=== PATIENT | male | born 1950 | race Caucasian/White ===

== ENCOUNTER → 2017-09-21 | Outpatient (CLI) | payer MEDICARE, MEDICAID ==
[~2017-09-21] MED LIST: ALBUAER3 INH; AMIO0.1T PO; AMIO5TAB; ANDR1GEL2 TOPICAL; ASCO100029 PO; BILB40CA2 PO; BOSW5TAB PO; CALC1TAB87 PO; CIAL5TAB PO; COUM7.5T PO; ENBR50IN4 SQ; FAMC250T PO; FOLI1TAB6 PO; GABA300C5 PO; HYDR-3583 PO; HYDR0.05 TOPICAL; IPRA0.06; KETO2CRE TOPICAL; LEVA500T33 PO; LISI-593 PO; LISI40TA; MAXA10TA2 PO; METH2.5T PO; OMEG100046 PO; OXYC-395 PO; OXYC40TA20 PO; OXYC60TA8 PO; PRED2.5T PO; ROSU20 PO; SILV1CRE20 TOPICAL; SPIR25TA PO; SYMB160A INH; ZAFI1TAB4; ZANT150T2 PO; [UNRECOGNIZED DRUG - CODE]
[2017-09-21 09:19] LABS: AUTOMATED NEUTROPHIL # 4.1 TH/MM3 (1.8-7.7); BASOPHIL # 0.1 TH/MM3 (0-0.2); BASOPHIL % 0.8 % (0.0-2.0); EOSINOPHIL # 0.3 TH/MM3 (0-0.4); EOSINOPHIL % 5.2 % (0.0-4.0); HEMATOCRIT 30.6 % (39.0-51.0); HEMOGLOBIN 10.4 GM/DL (13.0-17.0); LYMPH % 20.9 % (9.0-44.0); LYMPHOCYTE # 1.4 TH/MM3 (1.0-4.8); MEAN CELL VOLUME 101.7 FL (80.0-100.0); MEAN CORPUSCULAR HEMOGLOBIN 34.7 PG (27.0-34.0); MEAN CORPUSCULAR HGB CONC 34.1 % (32.0-36.0); MEAN PLATELET VOLUME 7.4 FL (7.0-11.0); MONO % 10.9 % (0.0-8.0); MONOCYTE # 0.7 TH/MM3 (0-0.9); NEUT % 62.2 % (16.0-70.0); PLATELET COUNT 199 TH/MM3 (150-450); RED BLOOD COUNT 3.01 MIL/MM3 (4.50-5.90); RED CELL DISTRIBUTION WIDTH 14.6 % (11.6-17.2); WHITE BLOOD COUNT 6.6 TH/MM3 (4.0-11.0)
[2017-09-21 09:22] LABS: BILIRUBIN, URINE NEG (NEG); BLOOD, URINE NEG (NEG); GLUCOSE,URINE NEG (NEG); KETONE, URINE NEG (NEG); MUCUS URINE FEW /lpf (OCC); NITRITE,URINE NEG (NEG); URINE COLOR YELLOW (YELLW/STRAW); URINE LEUKOCYTE ESTERASE NEG (NEG)
[2017-09-21 09:30] LABS: INTERNATIONAL NORMALIZED RATIO 1.6 RATIO
[2017-09-21 09:36] LABS: ALBUMIN 3.6 GM/DL (3.4-5.0); AST (GOT) 36 U/L (15-37); BICARBONATE 25.5 MEQ/L (21.0-32.0); BLOOD UREA NITROGEN 29 MG/DL (7-18); CALCIUM 8.5 MG/DL (8.5-10.1); CHLORIDE 107 MEQ/L (98-107); CREATININE 1.48 MG/DL (0.60-1.30); GLOMERULAR FILTRATION RATE 48 ML/MIN (>89); GLUCOSE,FASTING 86 MG/DL (74-99); SODIUM (NA) 138 MEQ/L (136-145)
[2017-09-21 09:37] LABS: ALT (GPT) 43 U/L (12-78)
[2017-09-21 09:40] LABS: ALKALINE PHOSPHATASE 67 U/L (45-117); TOTAL BILIRUBIN ADULT 0.4 MG/DL (0.2-1.0)
--- NOTE | 2017-09-21 10:12 | RADRPT ---
EXAM DATE/TIME: 09/21/2017 09:48 [facility] COMPARISON: No previous studies available for comparison. INDICATIONS : Pre op. Evaluate for pneumothorax, pneumonia, or communicable diseases. MEDICAL HISTORY : None. SURGICAL HISTORY : Fusion, Lumbar. ENCOUNTER: Initial ACUITY: 1 day PAIN SCORE: 0/10 LOCATION: Bilateral chest FINDINGS: The cardiac silhouette is normal in transverse diameter. The lungs are free of acute parenchymal opac ity. No effusions are identified. There is blunting of the costophrenic angle on the left consistent with dural thickening. CONCLUSION: 1. No acute cardiopulmonary disease. Quentin Smiley MD on September 21, 2017 at 10:09 Board Certified Radiologist. This report was verified electronically.
--- NOTE | 2017-09-21 12:20 | EKG ---
Date Performed: 09/21/2017 Time Performed: 09:31:34 PTAGE: 67 years EKG: Sinus rhythm Normal ECG NO PREVIOUS TRACING DOCTOR: Federico Harrington Interpretating Date/Time 09/21/2017 12:18:40
== END ==
LOC: CPRE 08:10
PROVIDERS: ATTEND Neurological Surgery
DX: Z01.812 Encounter for preprocedural laboratory examination (principal); Z01.811 Encounter for preprocedural respiratory examination; Z01.810 Encounter for preprocedural cardiovascular examination; Z01.818 Encounter for other preprocedural examination; M50.20 Other cervical disc displacement, unspecified cervical region; Z79.01 Long term (current) use of anticoagulants
CPT/HCPCS: 36415; 71046; 80053; 81001; 85025; 85610; 85730; 87640; 87641; 93005

== ENCOUNTER 2017-09-27 06:28 | Observation (INO) | payer MEDICARE, OTHER ==
[~2017-09-27] VITALS: Ht 182.9 cm; Wt 84.8 kg
[~2017-09-27 06:28] MED LIST changes: -AMIO5TAB; -HYDR-3583 PO; -LEVA500T33 PO; -LISI40TA; -ZAFI1TAB4; -[UNRECOGNIZED DRUG - CODE]
[2017-09-27] MEDS ORDERED: METOPROLOL TARTRATE 25 MG TAB PO PRN (07:00)
[2017-09-27] MEDS ORDERED: LACTATED RINGER'S 1000 ML IV PRN (07:00)
[2017-09-27] MEDS ORDERED: SODIUM CHLORID 0.9% 500 ML IV PRN (07:00)
[2017-09-27] MEDS ORDERED: SODIUM CHLOR 0.9% 1000 ML INJ 1,000 ML IV SCH (07:00)
[2017-09-27] MEDS ORDERED: VANCOMYCIN HCL 1000 MG ON-CALL/NS 250 ML IV SCH ×2 (07:00)
[2017-09-27] MEDS ORDERED: ceFAZolin 2 GM PREMIX 50 ML ONE (07:45)
[2017-09-27] MEDS ORDERED: THROMBIN (TOPICAL) 5,000 UNIT VIAL ONE (07:45)
[2017-09-27] MEDS ORDERED: MICROFIBRILLAR COLLAGEN HEMOSTAT 70 X 35 MM BANDAGE ONE (07:45)
[2017-09-27] MEDS ORDERED: GELFOAM SIZE 100 ONE (07:45)
[2017-09-27] MEDS ORDERED: GENTAMICIN SULFATE 80 MG/2 ML VIAL ONE (07:46)
[2017-09-27 07:50] LABS: PROTHROMBIN TIME - PATIENT 10.5 SEC (9.8-11.6)
[2017-09-27] MEDS ORDERED: LEVA500T33 PO (07:54)
[2017-09-27] MEDS ORDERED: ACETAMINOPHEN 1000 MG/100 ML 100 ML IV ONE (08:09)
[2017-09-27] MEDS ORDERED: ARTIFICIAL TEARS OPTH OINT 3.5 APPLIC/3.5 GM TUBO ONE (08:10)
[2017-09-27] MEDS ORDERED: PROPOFOL 500 MG/50 ML INJ 150 ML ONE (08:12)
[2017-09-27] MEDS ORDERED: LACTATED RINGER'S 1000 ML INJ 2,000 ML IV ONE (12:00)
[2017-09-27] MEDS ORDERED: ROCURONIUM INJ 50 MG/5 ML SYRINGE IV PUSH ONE (12:00)
[2017-09-27] MEDS ORDERED: PROPOFOL 200 MG/20 ML AMP IV ONE (12:00)
[2017-09-27] MEDS ORDERED: LIDOCAINE HCL 1% PF 5 ML SYRINGE OTHER ONE (12:00)
[2017-09-27] MEDS ORDERED: DEXAMETHASONE SOD PHOS 4 MG/ML VIAL IV ONE (12:00)
[2017-09-27] MEDS ORDERED: ONDANSETRON HCL 4 MG/2 ML VIAL IV ONE (12:00)
[2017-09-27] MEDS ORDERED: ePHEDrine/NS 25 MG/5 ML SYRINGE IV ONE (12:00)
--- NOTE | 2017-09-27 12:19 | RADRPT ---
EXAM DATE/TIME: 09/27/2017 09:56 [facility] COMPARISON: No previous studies available for comparison. INDICATIONS : Post-op C4-C5 and C5-C6 anterior cervical fusion. MEDICAL HISTORY : None. SURGICAL HISTORY : None. ENCOUNTER: Initial ACUITY: 1 day PAIN SCORE: Non-responsive. LOCATION: neck FINDINGS: A single lateral view of the cervical spine was performed. The vertebral bodies are in normal alignm ent with postoperative plate and screw fixation across C4-5-6. CONCLUSION: 1. Anterior fusion across C4-5-6. Normal alignment. Drain present. Jose Paulino MD on September 27, 2017 at 12:16 Board Certified Radiologist. This report was verified electronically.
[2017-09-27] MEDS ORDERED: diphenhydrAMINE HCL 50 MG/ML VIAL ONE (12:22)
[2017-09-27] MEDS ORDERED: DO NOT ADM ANY ANTICOAGULANT DRUGS PRN (12:30)
[2017-09-27] MEDS ORDERED: MORPHINE SULFATE 4 MG/ML INJ ONE (13:01)
[2017-09-27] MEDS ORDERED: MIDAZOLAM HCL 2 MG/2 ML VIAL ONE (13:01)
--- NOTE | 2017-09-27 13:08 | PD.OP ---
Operative Report Date of Surgery: Sep 27, 2017 Preoperative Diagnosis: C4-5, C5-6 cervical spinal stenosis Postoperative Diagnosis: C4-5, C5-6 cervical spinal stenosis Procedure: C4-5, C5-6 anterior cervical discectomy, interbody arthodhesis using PEEK cage filled with autologous bone graft, Simplicity plate and screws. Anesthesia: General Surgeon: Shun Worrell Assistant Unit Forester(s): Guera Russell Operation and Findings: INDICATIONS FOR THE PROCEDURE Mr erickson is a 67 year-old male who presented with intractable neck pain and clinical evidence of upper extremity radiculopathy. He was found to have significant spndylosis with stenosis. He has failed maximum nonsurgical management including multiple modalities of conservative treatment. A surgical decompression and arthrodhesis were indicated. The qihk-yj-zehs details of the procedure, indications, alternatives, risks and potential complications were fully discussed with the patient. He fully understood. All The questions were answered. No guarantees were given. The patient voiced requesting the procedure and provided informed consents. The patient was offered the alternative of delaying the procedure and continuing with nonsurgical management. DETAILS OF THE SURGICAL PROCEDURE After the induction of general anesthesia, endotracheal intubation was performed. A Marmolejo catheter, bilateral FRANK hose, and sequential compression devices were placed and kept throughout the procedure. Placement of electrodes for neurophysiological monitoring of the somatosensorial evoked potentials. motor evoked potentials, and EMG as well as laryngeal nerve monitoring was achieved. The patient was positioned supine on a Delvin table with the head over a gel doughnut. All pressure points were carefully padded with eggcrate mattress. The eyes were tapped shut after ointment was applied by the anesthesiologist to prevent corneal abrasion. A Lolis hugger was placed over the exposed lower body to maintain control of the core body temperature. The electrophysiological team placed the needles and electrodes in their proper location and baseline SSEP's and motor evoked potentials were registered prior and after positioning and endotracheal intubation. The anterior cervical region was prepped and draped in the usual sterile fashion. A localizing x-ray was performed with a C-arm. The surgical procedure was performed in several steps as follow: SURGICAL APPROACH A skin incision was made along the medial cervical crease with a #10 blade. The dissection was carried out through the platysma exposing the sternocleidomastoid muscle. The cervical spine was approached following the fascial layers of the neck just medial to the anterior border of the sternocleidomastoid and carotid sheath by a combination of sharp and dull dissection. The omohyoid muscle was identified and carefully dissected laterally and the deep cervical fascia was carefully opened. The longus colli muscles were retracted to each side of the midline. A marker was placed at the disc space C5-6 and a cross-table lateral x-ray performed with a C-arm. SURGICAL DECOMPRESSION In order to decompress the anterior surface of the spinal cord it was necessary to preform a microsurgical resection of the disk at C4-5 and C5-6. At this point in the procedure the operating microscope was draped in the usual sterile fashion and brought to the field. The rest of the surgical procedure was performed using microdissection technique with the exception of the closure. Under the operative microscopic, a self-retaining retractor was placed underneath the longus colli muscle. Anterior osteophite spurs werte carefully removed with the [place]. The annulus at C4-5 and C5-6 were incised with a #15 blade and microdiscectomy was then carefully carried out using angled curets and pituitary forceps. There were osteophitic/disk complexes mass effect and compression of the dural sac and nerve roots. The posterior longitudinal ligament was then elevated with an angled curet and incised with a 15 bladed knife. A careful resection of the posterior longitudinal ligament was carried out using a thin footplate 2 mm Kerrison. A nerve hook was used to assess the epidural space behing the vertebral bodies C5 and C6 in search for residual disk fragments. The margins of the posterior endplates at C4-5 and C5-6 were carefully drilled and undercut with a TPS drill under high magnification. The decompression was then carried out laterally, and a bilateral foraminotomy was performed with a 2mm thin foot Kerrison. Then the vertebral bodies above and below the disk space were undercut using a 2 mm thin foot Kerrison. The epidural space was the systematically assessed with a nerve hook in search for disk fragments or scar tissue. An excellent decompression was achieved in both , the dural sac and bilateral exiting nerve roots. The incision was then irrigated with a large amount of antibiotic solution INTERBODY ARTHRODHESIS In order to avoid collapse of the disk space which would result in bilateral foraminal stenosis, and to increase the chances of a successful fusion, it was necessary to place an interbody cage filled with autologous bone. At this point of the procedure, the superior and inferior endplates were then evenly decorticated with a TPS drill. The use of a drill in combination with a curette allowed me to systematically remove the cartilaginous endplates, exposing healthy bone for the interbody arthrodesis. Fourteen millimeters distraction pins were then placed at the vertebral bodies adjacent to the disk space, and gentle distraction was applied. The size of the interbody cage was then assessed using different size spacers, and a rasp was used to ensure no residual cartilage. A PEEK cage of the appropriate size was selected, and the interbody arthrodesis was then preformed by carefully impacting a PEEK cage filled with autologous bone graft to the disc spaces C4-5 and C5-6. An excellent position of the cage was achieved. This was was confirmed anatomically by feeling the space posterior to the implant and distance to the anterior surface of the dural sac. Radiological confirmation of the position was performed with a cross lateral xray performed with the C-arm. INTERNAL INSTRUMENTAL FIXATION Once that the interbody device was in an appropriate position, it was necessary to stabilize the spine with anterior instrumentation. Anterior instrumentation has demonstrated to increase the rate of fusion, acelerate the patient's recovery, and decrease the rate of failed interbody grafts. At this point of the procedure, the distance between the vertebral bodies was carefully measures, and a Simplicity plate was brought to the field and presented in front of the vertebral bodies C4 C5 and C6. Assembler Installer Structures holes were then drilled using the TPS drill, and the plate was then secured to the spine using self-drilling, self-tapping screws. Initially, the inferior right screw was inserted, followed by placement of the contralateral upper screw. The remanding screws were sequentially placed in a contra-lateral fashion. A proper purchase was achieved with all screws and the position of the cage, plate and screws, and alignment of the spine was assessed anatomically by direct visualization, and radiologically by performing a cross lateral xray of the cervical spine with the C-arm. CLOSURE The incision was irrigated with several liters of antibiotic solution. Hemostasis was achieved with a bipolar. The screws were locked to prevent backing out. A 7 mm Delvin-De Oliveira drain was left in the prevertebral space and externalized through a separate stab incision. The incision was then closed in layers. 3-0 Vicryl with interrupted sutures was used to close the platysma and subcutaneous tissue. The skin was closed with 4-0 running subcuticular Vicryl and glue was applied to the skin. The drain was secured with a 3-0 nylon. At the end of the procedure the sponge, needle and instrument counts were all correct. The estimated blood loss was less than 60 cc. No blood transfusion was given. No intraoperative complications occurred. The patient received prophylactic antibiotics. The patient was then extubated and transferred to the recovery room in stable condition. Shun Worrell MD Sep 27, 2017 13:08
[2017-09-27] MEDS: SODIUM CHLOR 0.9% 1000 ML INJ 1,000 ML IV SCH ×2 (13:25→23:36)
[2017-09-27] MEDS ORDERED: *ENALAPRILAT 1.25 MG/ML VIAL PERIprocedural Use ONLY ONE (13:42)
[2017-09-27] MEDS ORDERED: MORPHINE SULFATE 2 MG/ML INJ IV PUSH PRN (14:00)
[2017-09-27] MEDS ORDERED: ACETAMINOPHEN/HYDROcodone 325 MG/10 MG TAB PO PRN ×2 (14:00)
[2017-09-27] MEDS ORDERED: CYCLOBENZAPRINE HCL 10 MG TAB PO PRN (14:00)
[2017-09-27] MEDS ORDERED: ACETAMINOPHEN 325 MG TAB PO PRN (14:00)
[2017-09-27] MEDS ORDERED: MAGNESIUM HYDROXIDE SUSP 30 ML CUP PO PRN (14:15)
[2017-09-27] MEDS ORDERED: cloNIDine HCL 0.1 MG TAB PO/NG PRN (14:15)
[2017-09-27] MEDS ORDERED: ONDANSETRON HCL 4 MG/2 ML VIAL IV PUSH PRN (14:15)
[2017-09-27] MEDS: DEXAMETHASONE SOD PHOS 4 MG/ML VIAL IV PUSH SCH ×2 (15:00→21:00)
[2017-09-27] MEDS ORDERED: MENTHOL LOZENGE BUCCAL PRN (15:00)
[2017-09-27] MEDS: ceFAZolin 2 GM PREMIX 50 ML IV SCH (17:00)
[2017-09-27] MEDS ORDERED: *morphine SULFATE 4 MG/ML PERIprocedure ONLY ONE (17:19)
[2017-09-27] MEDS ORDERED: CHLORHEXIDINE GLUCONATE 4% SOLN 120 ML BTL TOP SCH (21:00)
[2017-09-27] MEDS: DOCUSATE SODIUM 100 MG CAP PO SCH (22:02)
[2017-09-27 22:03] VITALS: BP 146/73; PULSE 68; RESP 16; TEMP 97.2; O2SAT 96
[2017-09-27] MEDS: MORPHINE SULFATE 2 MG/ML INJ IV PUSH PRN (22:11)
[2017-09-28] VITALS: BP 144/66; PULSE 73; RESP 15; TEMP 96.4; O2SAT 93
[2017-09-28] MEDS: RESP: ALBUTEROL 2.5 MG/3 ML NEB (PRN) INH ×2 (00:52→09:35)
[2017-09-28] MEDS: ceFAZolin 2 GM PREMIX 50 ML IV SCH ×2 (01:07→09:08)
[2017-09-28] MEDS: DEXAMETHASONE SOD PHOS 4 MG/ML VIAL IV PUSH SCH ×2 (03:29→09:08)
[2017-09-28] MEDS: MORPHINE SULFATE 2 MG/ML INJ IV PUSH PRN ×3 (03:36→10:08)
[2017-09-28 06:29] VITALS: BP 142/69; PULSE 62; RESP 18; TEMP 97.3; O2SAT 96
[2017-09-28 07:31] VITALS: BP 151/79; PULSE 59; RESP 18; TEMP 96.9; O2SAT 97
[2017-09-28] MEDS ORDERED: PANTOPRAZOLE SOD 40 MG DELAYED RELEASE TAB PO SCH (09:00)
[2017-09-28] MEDS: DOCUSATE SODIUM 100 MG CAP PO SCH (09:08)
[2017-09-28] MEDS ORDERED: HYDR-3583 PO (09:30)
[2017-09-28] MEDS ORDERED: OXYC-395 PO (09:35)
[2017-09-28] MEDS ORDERED: PHENOL 1.4% SOLN 180 ML BTL OROPHARYNG PRN (10:30)
[2017-09-28] MEDS ORDERED: BENZOCAINE 6 MG/MENTHOL 10 MG LOZENGE BUCCAL PRN (10:30)
[2017-09-28 11:50] VITALS: O2SAT 93; O2SAT 97
[2017-09-28 11:54] VITALS: BP 140/66; PULSE 70; RESP 18; TEMP 97.2; O2SAT 97
--- NOTE | 2017-09-28 12:44 | HHI.DS ---
Discharge Summary Admission Date Sep 27, 2017 at 12:51 Discharge Date: Sep 28, 2017 Admitting Diagnosis s/p ACDF (1) Status post cervical arthrodesis ICD Code: Z98.1 - Arthrodesis status Brief History Mr Camp is a 67 year-old male who presented with intractable neck pain and clinical evidence of upper extremity radiculopathy. He was found to have significant spndylosis with stenosis. He has failed maximum nonsurgical management including multiple modalities of conservative treatment. A surgical decompression and arthrodesis were indicated. Significant Findings Laboratory Tests Test 09/27/17 07:30 Imaging Last Impressions Cervical Spine X-Ray 09/27/17 0000 Signed Impressions: Service Date/Time: Wednesday, September 27, 2017 09:56 - CONCLUSION: 1. Anterior fusion across C4-5-6. Normal alignment. Drain present. Jose Paulino MD PE at Discharge Awake, alert. No acute distress. Speech is clear. Pupils equal. Facial motor symmetric. Motor: moves all four extremities Resp: clear, no wheezes Skin: wound with clean, dry dressing Neck: immobilized by [facility] Hospital Course Mr. Camp underwent a C4-5, C5-6 anterior cervical discectomy, interbody arthrodesis using PEEK cage filled with autologous bone graft, simplicity plate and screws on Sep 27, 2017 for cervical spinal stenosis. He was discharged home the following day in stable conditions. Wound care and activity restrictions discussed. Pt Condition on Discharge: Stable Discharge Disposition: Discharge Home Discharge Instructions DIET: Follow Instructions for: Heart Healthy Diet ADDITIONAL Diet Instructions: soft food and advance as tolerated ACTIVITIES You can perform: Weight Bearing As [place] ADDITIONAL Activity Instructio: Keep [place] collar on at all times, may remove with meals. Avoid strenuous activities, heavy lifting, or other activities that may place stress on the cervical spine. Follow up Referrals: Neurosurgery - 1 Week New Medications: Oxycodone (Oxycodone) 10 Mg Tab 10 MG PO Q8H PRN for PAIN, #62 TAB 0 Refills Hydrocodone/Acetaminophen (Hydrocodone-Acetamin 10-325 mg) 10 Mg-325 Mg Tablet 1 TAB PO Q4H PRN for PAIN SCALE 1 TO 5, #62 TAB-CAP 0 Refills Continued Medications: Albuterol 8.5 GM Inh (Proair Hfa 8.5 GM Inh) 90 Mcg/Act Aer 2 PUFF INH DAILY PRN for SHORTNESS OF BREATH Amiodarone (Amiodarone) 100 Mg Tab 100 MG PO DAILY@0600 for Regulate Heart Beat, #30 TAB 0 Refills Ascorbic Acid (Vitamin C) 1,000 Mg Tablet.er 1 TAB PO DAILY Eqescryv-Sbwebmzlnutng-Icwcsegdm-Rutin (Bilberry Complex) 40-25-10-10 Mg Cap 250 MG PO DAILY, CAP Juerxbetn-Xnxyivxpjqz-Ttcskun (Osteo Bi-Flex One A Day) 1 Tab 1 TAB PO BID, TAB Budesonide-Formoterol Inh (Symbicort Inh) 160-4.5 Mcg/Act Aero 2 PUFF INH BID Calcium Carbonate-Cholecalciferol (Calcium 600 with Vitamin D) 600-400 mg-Unit Tab 1 TAB PO BID for Calcium Supplement, TAB 0 Refills Etanercept PF Inj (Enbrel Sureclick PF Inj) 50 Mg/Ml Syr 4 ML SQ tuesday@6pm, #4 SYRINGE 0 Refills Famciclovir (Famciclovir) 250 Mg Tab 1 TAB PO BID Folic Acid (Folic Acid) 1 Mg Tablet 1 TAB PO DAILY Gabapentin (Gabapentin) 300 Mg Cap 300 MG PO BID Hydrocortisone Valerate Topical (Hydrocortisone Valerate Topical) 0.2% Cream 1 APPLIC TOPICAL TID PRN for RASH, #45 GM 0 Refills Ipratropium [place] (Ipratropium [place]) 42 Mcg (0.06 %) [place] 2 SPRAY NA BID PRN for ALLERGIES Ketoconazole Topical (Ketoconazole Topical) 2% Cream 1 APPLIC TOPICAL DAILY PRN for fungus, #15 GM 0 Refills Levofloxacin (Levaquin) 500 Mg Tablet 500 MG PO ONCE for Infection, TAB 0 Refills Lisinopril (Zestril) 40 Mg Tab 40 MG PO DAILY for Blood Pressure Management, #30 TAB 0 Refills Methotrexate (Methotrexate) 2.5 Mg Tab 8 TAB PO tuesday@6pm Saxon-3/Dha/Epa/Fish Oil (Fish Oil 1,000 mg Softgel) 1,000 Mg (120 Mg-180 Mg) Capsule 1 TAB PO BID Oxycodone (Oxycodone) 10 Mg Tab 1-2 TAB PO Q4-6H PRN for pain Oxycodone ER (Oxycontin) 60 Mg Tab 1 TAB PO BID Oxycodone HCl (Oxycontin) 40 Mg Tab.er.12h 1 TAB PO daily@12pm Prednisone (Prednisone) 2.5 Mg Tab 1 TAB PO DAILY Ranitidine (Zantac) 150 Mg Tab 150 MG PO DAILY PRN for gerd, #30 TAB 0 Refills Rizatriptan (Maxalt) 10 Mg Tab 1 TAB PO DAILY PRN for migraines Rosuvastatin (Crestor) 20 Mg Tab 1 TAB PO daily@6pm Silver Sulfadiazine Topical (Silvadene Topical) 1 % Cream 1 APPLIC TOPICAL DAILY PRN for fungal rash, #400 GM 0 Refills Spironolactone (Spironolactone) 25 Mg Tab 1 TAB PO DAILY@0600 Tadalafil (Cialis) 5 Mg Tab 5 MG PO DAILY PRN for erectile dysfunction, TAB 0 Refills Do not exceed 1 dose/day. Warfarin (Coumadin) 7.5 Mg Tab 1 TAB PO ,,,,fr,sa Warfarin (Coumadin) 7.5 Mg Tab 1.5 TAB PO TUESDAY for Prevent Blood Clot, #30 TAB 0 Refills Radha Martinez Sep 28, 2017 12:44
--- NOTE | 2017-09-28 12:44 | HHI.DCPOC ---
Discharge Care Plan Diagnosis: (1) Status post cervical arthrodesis Goals to Promote Your Health * To prevent worsening of your condition and complications * To maintain your health at the optimal level Directions to Meet Your Goals Take your medications as prescribed Follow your dietary instruction Follow activity as directed Keep your appointments as scheduled Take your immunizations and boosters as scheduled If your symptoms worsen call your PCP, if no PCP go to Urgent Care Center or Emergency Room Smoking is Dangerous to Your Health. Avoid second hand smoke Call the 24-hour hour crisis hotline for domestic abuse at Radha Martinez Sep 28, 2017 12:44
== END 2017-09-28 16:11 | disposition home or self-care (01) ==
LOC: HSDC 06:28 → HSDI 12:51 → N06A 21:41
PROVIDERS: ADMIT Neurological Surgery; ATTEND Neurological Surgery
DX: M48.02 Spinal stenosis, cervical region (principal); M54.12 Radiculopathy, cervical region; I11.0 Hypertensive heart disease with heart failure; I50.9 Heart failure, unspecified; E78.5 Hyperlipidemia, unspecified; G62.9 Polyneuropathy, unspecified; M06.9 Rheumatoid arthritis, unspecified
CPT/HCPCS: 00600; 20936; 22551; 22552; 22853; 72020; 76000; 82948; 85610; 85730; 94150; 94640; 94664; 96361; 96365; 96366; 96375; 96376; 97163; C1713; G0378; G8987; G8988; J0131; J0690; J1100; J1200; J1580; J2250; J2270; J2405; J3010; J3370; J7030; J7050; J7120; J7613; L0150; L0172